=== PATIENT | female | born 1985 | race Two or more races ===

== ENCOUNTER 2019-09-27 20:29 | Emergency (ER) | payer MEDICAID ==
[~2019-09-27] VITALS: Ht 154.9 cm; Wt 68.0 kg
[2019-09-27] MEDS ORDERED: SODIUM CHLORIDE 0.9% 1,000 ML IV ONE (21:17)
[2019-09-27] MEDS ORDERED: ONDANSETRON HCL 4MG/2ML INJ IV STA ×2 (21:17→23:30)
[2019-09-27] MEDS ORDERED: KETOROLAC 30MG/ML VIAL IV STA (21:22)
[2019-09-27 21:27] LABS: CLARITY URINE CLOUDY (CLEAR); COLOR URINE YELLOW (YELLOW); KETONES URINE 2+ (NEGATIVE); LEUKOCYTE ESTERASE URINE NEGATIVE (NEGATIVE); NITRITE URINE NEGATIVE (NEGATIVE); OCCULT BLOOD URINE 3+ (NEGATIVE); PH URINE 5.5 (4.5-8.0); PROTEIN URINE 1+ (NEGATIVE); SPECIFIC GRAVITY URINE 1.019 (1.005-1.030); UROBILINOGEN URINE 0.2 E.U./dL (0.2-1.0)
[2019-09-27 21:38] LABS: BASOPHILS % 0.1 % (0.0-2.0); HEMATOCRIT. 41.3 % (36.0-48.0); HEMOGLOBIN. 14.3 g/dL (12.0-16.0); LYMPHOCYTES % 10.7 % (20.0-50.0); MEAN CORPUSCULAR HEMOGLOBIN 30.8 pg (28.0-32.0); MEAN CORPUSCULAR VOLUME 89.4 fL (81.0-99.0); MEAN PLATELET VOLUME 7.5 fl (7.4-10.4); MONOCYTES % 5.8 % (2.0-8.0); NEUTROPHILS % 83.4 % (40.0-76.0); PLATELET 257 x1000/uL (130-400); RED BLOOD CELL COUNT 4.62 mill/uL (4.2-5.4); RED CELL DISTRIBUTION WIDTH 12.8 % (11.6-14.6)
[2019-09-27 21:41] LABS: CHLORIDE 107 mEq/L (98-107)
[2019-09-27 21:44] LABS: PROTHROMBIN TIME 10.9 sec (9.6-11.0)
[2019-09-27] MEDS ORDERED: MORPHINE SULFATE 2 MG/ML CPJ (NOT FOR IM USE) IV ONE (21:45)
[2019-09-27 21:55] LABS: B-HCG QUANTITATIVE < 1 mIU/mL (<3)
[2019-09-27] MEDS ORDERED: POTASSIUM CHLORIDE 20MEQ TABLET SR PO ONE (22:00)
[2019-09-27] MEDS ORDERED: IOHEXOL-300 100 ML BOTTLE ONE (22:57)
[2019-09-27] MEDS ORDERED: MORPHINE SULFATE 4 MG/ML CPJ (NOT FOR IM USE) IV STA (23:30)
[2019-09-27 23:56] VITALS: BP 122/76
[2019-10-02] MEDS ORDERED: SULF1TAB48 MT (09:12)
[2019-10-02] MEDS ORDERED: AZIT500T8 MT (09:12)
== END 2019-09-28 01:18 | disposition home or self-care (01) ==
LOC: ER 20:29
DX: K52.9 Noninfective gastroenteritis and colitis, unspecified (principal)
CPT/HCPCS: 36415; 74177; 76830; 76856; 80053; 81003; 81025; 83690; 84702; 85025; 85610; 96361; 96374; 96375; 96376; 99285; J2270; J2405; J7030; Q9967

== ENCOUNTER 2019-09-28 06:58 | Inpatient (IN) | payer MEDICAID ==
[~2019-09-28] VITALS: Ht 154.9 cm; Wt 68.0 kg
[2019-09-28] MEDS ORDERED: SODIUM CHLORIDE 0.9% 1,000 ML IV ONE (08:00)
[2019-09-28] MEDS ORDERED: METRONIDAZOLE 500 MG PREMIX 100 ML IV ONE (09:45)
[2019-09-28] MEDS ORDERED: ONDANSETRON HCL 4MG/2ML INJ IV ONE (09:45)
[2019-09-28] MEDS ORDERED: LEVOFLOXACIN 500MG PREMIX 100 ML IV ONE (09:45)
[2019-09-28] MEDS ORDERED: METOCLOPRAMIDE HCL 10MG/2ML VIAL IV ONE (12:30)
[2019-09-28] MEDS ORDERED: ACETAMINOPHEN 325MG TABLET PO PRN (15:00)
[2019-09-28 15:22] LABS: CHLORIDE 109 mEq/L (98-107)
[2019-09-28 15:24] LABS: HEMATOCRIT. 38.9 % (36.0-48.0); HEMOGLOBIN. 13.4 g/dL (12.0-16.0); MEAN CORPUSCULAR HEMOGLOBIN 30.9 pg (28.0-32.0); MEAN CORPUSCULAR VOLUME 89.7 fL (81.0-99.0); MEAN PLATELET VOLUME 7.6 fl (7.4-10.4); PLATELET 247 x1000/uL (130-400); RED BLOOD CELL COUNT 4.34 mill/uL (4.2-5.4); RED CELL DISTRIBUTION WIDTH 12.8 % (11.6-14.6)
[2019-09-28 15:54] VITALS: BP 107/66
[2019-09-28 16:00] VITALS: BP 101/66
[2019-09-28 16:06] LABS: PLATELET ESTIMATE NORMAL
[2019-09-28] MEDS: ONDANSETRON HCL 4MG/2ML INJ IV PRN (16:15)
[2019-09-28] MEDS: DEXT 5%/0.45% NACL 1000ML 1,000 ML IV SCH (16:15)
[2019-09-28] MEDS: MORPHINE SULFATE 2 MG/ML CPJ (NOT FOR IM USE) IV PRN ×2 (16:16→20:40)
[2019-09-28] MEDS ORDERED: POTASSIUM CHLORIDE 20MEQ TABLET SR PO NR (17:30)
[2019-09-28] MEDS: METOCLOPRAMIDE HCL 10MG/2ML VIAL IV SCH ×2 (17:47→23:12)
[2019-09-28] MEDS ORDERED: PIPERACILLIN/TAZOBACTAM 3.375 G in DEXT 5% WATER 100 ML IV SCH (18:00)
[2019-09-28 19:22] LABS: *AMPHETAMINES SCREEN URINE NEGATIVE (NEGATIVE); *BARBITURATES SCREEN URINE NEGATIVE (NEGATIVE); *BENZODIAZEPINES SCREEN URINE NEGATIVE (NEGATIVE); *COCAINE SCREEN URINE NEGATIVE (NEGATIVE); METHADONE URINE SCREEN NEGATIVE (NEGATIVE); PHENCYCLIDINE URINE SCREEN NEGATIVE (NEGATIVE)
[2019-09-28 19:24] LABS: CANNABINOID URINE SCREEN PRESUMTIVE POSITIVE (NEGATIVE); OPIATES URINE SCREEN PRESUMTIVE POSITIVE (NEGATIVE)
[2019-09-28 20:00] VITALS: BP 128/77
[2019-09-28] MEDS: PIPERACILLIN/TAZOBACTAM 3.375 G in DEXT 5% WATER 100 ML IV SCH (20:37)
[2019-09-29] VITALS: BP 122/67
[2019-09-29] MEDS: DEXT 5%/0.45% NACL 1000ML 1,000 ML IV SCH ×3 (01:42→21:51)
[2019-09-29] MEDS: PIPERACILLIN/TAZOBACTAM 3.375 G in DEXT 5% WATER 100 ML IV SCH ×4 (03:00→21:51)
[2019-09-29 04:00] VITALS: BP 95/54
[2019-09-29] MEDS: METOCLOPRAMIDE HCL 10MG/2ML VIAL IV SCH ×3 (05:48→18:46)
[2019-09-29 06:30] LABS: BASOPHILS % 0.4 % (0.0-2.0); HEMATOCRIT. 35.1 % (36.0-48.0); HEMOGLOBIN. 12.1 g/dL (12.0-16.0); LYMPHOCYTES % 18.7 % (20.0-50.0); MEAN CORPUSCULAR HEMOGLOBIN 30.8 pg (28.0-32.0); MEAN CORPUSCULAR VOLUME 89.1 fL (81.0-99.0); MEAN PLATELET VOLUME 7.9 fl (7.4-10.4); NEUTROPHILS % 69.9 % (40.0-76.0); PLATELET 251 x1000/uL (130-400); RED BLOOD CELL COUNT 3.95 mill/uL (4.2-5.4); RED CELL DISTRIBUTION WIDTH 12.9 % (11.6-14.6)
[2019-09-29 06:43] LABS: CHLORIDE 108 mEq/L (98-107)
[2019-09-29] MEDS: MORPHINE SULFATE 2 MG/ML CPJ (NOT FOR IM USE) IV PRN ×4 (06:53→21:03)
[2019-09-29 07:10] LABS: HCG SCREEN NEGATIVE
[2019-09-29 08:00] VITALS: BP 103/61
[2019-09-29] MEDS ORDERED: POTASSIUM CHLORIDE 20MEQ TABLET SR PO SCH (08:20)
[2019-09-29] MEDS: ONDANSETRON HCL 4MG/2ML INJ IV PRN ×2 (10:08→21:05)
[2019-09-29 12:00] VITALS: BP 123/72
[2019-09-29 16:00] VITALS: BP 131/74
[2019-09-29 20:00] VITALS: BP 118/78
[2019-09-29] MEDS: VANCOMYCIN HCL 1000 MG/20 ML ORAL PO SCH (22:35)
[2019-09-30] VITALS: BP 123/69
[2019-09-30] MEDS: METOCLOPRAMIDE HCL 10MG/2ML VIAL IV SCH ×3 (00:51→13:29)
[2019-09-30] MEDS: MORPHINE SULFATE 2 MG/ML CPJ (NOT FOR IM USE) IV PRN ×3 (01:03→10:45)
[2019-09-30] MEDS: PIPERACILLIN/TAZOBACTAM 3.375 G in DEXT 5% WATER 100 ML IV SCH ×3 (03:17→15:00)
[2019-09-30 04:00] VITALS: BP 128/73
[2019-09-30 07:22] LABS: BASOPHILS % 0.4 % (0.0-2.0); EOSINOPHILS % 0.1 % (0.0-5.0); HEMATOCRIT. 37.3 % (36.0-48.0); HEMOGLOBIN. 12.9 g/dL (12.0-16.0); LYMPHOCYTES % 22.5 % (20.0-50.0); MEAN CORPUSCULAR VOLUME 89.3 fL (81.0-99.0); MEAN PLATELET VOLUME 7.9 fl (7.4-10.4); MONOCYTES % 8.2 % (2.0-8.0); NEUTROPHILS % 68.8 % (40.0-76.0); PLATELET 261 x1000/uL (130-400); RED BLOOD CELL COUNT 4.18 mill/uL (4.2-5.4); RED CELL DISTRIBUTION WIDTH 12.9 % (11.6-14.6)
[2019-09-30 07:33] LABS: CHLORIDE 103 mEq/L (98-107)
[2019-09-30] MEDS ORDERED: POTASSIUM CHLORIDE 20MEQ TABLET SR PO NR (07:45)
[2019-09-30 08:00] VITALS: BP 127/68
[2019-09-30] MEDS: VANCOMYCIN HCL 1000 MG/20 ML ORAL PO SCH ×3 (09:26→17:00)
[2019-09-30] MEDS: DEXT 5%/0.45% NACL 1000ML 1,000 ML IV SCH ×2 (09:30→17:00)
[2019-09-30] MEDS ORDERED: POTASSIUM CHLORIDE INJ 40 MEQ in DEXT 5% WATER 500 ML IV NR (10:00)
[2019-09-30 12:00] VITALS: BP 122/72
[2019-09-30] MEDS ORDERED: ONDA4TAB5 MT (13:55)
[2019-09-30 14:17] VITALS: BP 122/72
[2019-09-30 16:00] VITALS: BP 120/78
[2019-10-02] MEDS ORDERED: SULF1TAB48 MT (09:12)
[2019-10-02] MEDS ORDERED: AZIT500T8 MT (09:12)
[2019-10-03 13:07] LABS: SACCHAROMYCES CEREVISIAE IGG <20.0 Units (0.0-24.9); SACCHAROMYCES CEREVISIAE IGM <20.0 Units (0.0-24.9)
[2019-10-03 14:09] LABS: ATYPICAL pANCA <1:20 titer (Neg:<1:20)
== END 2019-09-30 17:06 | disposition home or self-care (01) | DRG 253 ==
LOC: ER 06:58 → 6EST 10:59 → EDBEDREQ 11:12 → ENRESERV 14:37
PROVIDERS: ADMIT Internal Medicine; ATTEND Internal Medicine
DX: K92.2 Gastrointestinal hemorrhage, unspecified (principal); A04.5 Campylobacter enteritis; E87.6 Hypokalemia; F11.10 Opioid abuse, uncomplicated; A02.0 Salmonella enteritis
CPT/HCPCS: 36415; 80048; 80305; 82270; 83735; 84703; 85025; 86256; 86671; 87015; 87045; 87186; 87427; 87449; 87493; 89055; 99285; J1956; J2270; J2405; J2543; J2765; J3370; J3480; J3490; J7060

== ENCOUNTER 2020-01-04 03:05 | Emergency (ER) | payer MEDICAID ==
[~2020-01-04] VITALS: Ht 157.5 cm; Wt 63.0 kg
[~2020-01-04 03:05] MED LIST: AZIT500T8 MT; ONDA4TAB5 MT; SULF1TAB48 MT
[2020-01-04] MEDS ORDERED: DICYCLOMINE 10 MG/5 ML ORAL SYR PO STA (06:54)
[2020-01-04] MEDS ORDERED: VISCOUS LIDOCAINE 2% 15 ML UDC PO STA (06:54)
[2020-01-04] MEDS ORDERED: MAGNESIUM/ALUMINUM HYDROXIDE/SIMETHICONE 30ML UDC PO STA (06:54)
[2020-01-04] MEDS ORDERED: SODIUM CHLORIDE 0.9% 1,000 ML IV ONE (06:54)
[2020-01-04] MEDS ORDERED: ONDANSETRON HCL 4MG/2ML INJ IV STA (06:54)
[2020-01-04 07:00] VITALS: BP 128/62
[2020-01-04 07:39] LABS: CLARITY URINE CLEAR (CLEAR); COLOR URINE YELLOW (YELLOW); KETONES URINE NEGATIVE (NEGATIVE); LEUKOCYTE ESTERASE URINE NEGATIVE (NEGATIVE); NITRITE URINE NEGATIVE (NEGATIVE); OCCULT BLOOD URINE NEGATIVE (NEGATIVE); PROTEIN URINE NEGATIVE (NEGATIVE); SPECIFIC GRAVITY URINE 1.014 (1.005-1.030); UROBILINOGEN URINE 0.2 E.U./dL (0.2-1.0)
[2020-01-04 07:41] LABS: PROTHROMBIN TIME 10.6 sec (9.6-11.0)
[2020-01-04 07:43] LABS: BASOPHILS % 0.6 % (0.0-2.0); CHLORIDE 107 mEq/L (98-107); EOSINOPHILS % 0.4 % (0.0-5.0); HEMATOCRIT. 38.8 % (36.0-48.0); HEMOGLOBIN. 13.3 g/dL (12.0-16.0); LYMPHOCYTES % 29.1 % (20.0-50.0); MEAN CORPUSCULAR HEMOGLOBIN 30.4 pg (28.0-32.0); MEAN PLATELET VOLUME 7.8 fl (7.4-10.4); NEUTROPHILS % 62.9 % (40.0-76.0); PLATELET 270 x1000/uL (130-400); RED BLOOD CELL COUNT 4.36 mill/uL (4.2-5.4); RED CELL DISTRIBUTION WIDTH 12.8 % (11.6-14.6)
== END 2020-01-04 10:01 | disposition home or self-care (01) ==
LOC: ER 03:05
DX: R10.9 Unspecified abdominal pain (principal); R05 Cough
CPT/HCPCS: 36415; 71045; 80053; 81003; 81025; 83690; 85025; 85610; 93005; 96374; 99285; J2405; J7030

== ENCOUNTER 2020-01-24 12:37 | Emergency (ER) | payer MEDICAID ==
[~2020-01-24] VITALS: Ht 165.1 cm; Wt 65.0 kg
[2020-01-24 12:54] VITALS: BP 118/68
[2020-01-24 15:04] LABS: CLARITY URINE CLEAR (CLEAR); COLOR URINE YELLOW (YELLOW); KETONES URINE NEGATIVE (NEGATIVE); LEUKOCYTE ESTERASE URINE NEGATIVE (NEGATIVE); NITRITE URINE NEGATIVE (NEGATIVE); OCCULT BLOOD URINE NEGATIVE (NEGATIVE); PROTEIN URINE NEGATIVE (NEGATIVE); SPECIFIC GRAVITY URINE 1.007 (1.005-1.030); UROBILINOGEN URINE 0.2 E.U./dL (0.2-1.0)
== END 2020-01-24 15:20 | disposition home or self-care (01) ==
LOC: ER 12:37
DX: J06.9 Acute upper respiratory infection, unspecified (principal); F12.90 Cannabis use, unspecified, uncomplicated
CPT/HCPCS: 71045; 81003; 81025; 99284

== ENCOUNTER 2020-02-27 12:29 | Emergency (ER) | payer MEDICAID, OTHER ==
[~2020-02-27] VITALS: Ht 154.9 cm; Wt 68.0 kg
[2020-02-27 14:24] LABS: CLARITY URINE CLEAR (CLEAR); COLOR URINE YELLOW (YELLOW); KETONES URINE TRACE (NEGATIVE); LEUKOCYTE ESTERASE URINE NEGATIVE (NEGATIVE); NITRITE URINE NEGATIVE (NEGATIVE); OCCULT BLOOD URINE NEGATIVE (NEGATIVE); PH URINE 5.5 (4.5-8.0); PROTEIN URINE NEGATIVE (NEGATIVE); SPECIFIC GRAVITY URINE 1.008 (1.005-1.030); UROBILINOGEN URINE 0.2 E.U./dL (0.2-1.0)
[2020-02-27 14:25] LABS: BASOPHILS % 0.8 % (0.0-2.0); HEMATOCRIT. 39.5 % (36.0-48.0); HEMOGLOBIN. 13.6 g/dL (12.0-16.0); LYMPHOCYTES % 15.4 % (20.0-50.0); MEAN CORPUSCULAR HEMOGLOBIN 30.1 pg (28.0-32.0); MEAN CORPUSCULAR VOLUME 87.4 fL (81.0-99.0); MEAN PLATELET VOLUME 7.8 fl (7.4-10.4); MONOCYTES % 4.6 % (2.0-8.0); NEUTROPHILS % 79.2 % (40.0-76.0); PLATELET 293 x1000/uL (130-400); RED BLOOD CELL COUNT 4.52 mill/uL (4.2-5.4); RED CELL DISTRIBUTION WIDTH 12.5 % (11.6-14.6)
[2020-02-27 14:30] LABS: CHLORIDE 108 mEq/L (98-107)
[2020-02-27 14:43] LABS: B-HCG QUANTITATIVE 374 mIU/mL (<3)
[2020-02-27 15:18] VITALS: BP 121/72
== END 2020-02-27 15:33 | disposition home or self-care (01) ==
LOC: ER 12:29
DX: O34.81 Maternal care for other abnormalities of pelvic organs, first trimester (principal); N83.201 Unspecified ovarian cyst, right side; Z3A.01 Less than 8 weeks gestation of pregnancy
CPT/HCPCS: 36415; 76801; 80053; 81003; 81025; 84702; 85025; 86850; 86900; 93005; 99285

== ENCOUNTER 2020-02-29 08:56 | Emergency (ER) | payer OTHER ==
[~2020-02-29] VITALS: Ht 154.9 cm; Wt 60.0 kg
[2020-02-29 09:42] LABS: BASOPHILS % 0.5 % (0.0-2.0); EOSINOPHILS % 0.1 % (0.0-5.0); HEMATOCRIT. 37.1 % (36.0-48.0); HEMOGLOBIN. 12.9 g/dL (12.0-16.0); LYMPHOCYTES % 20.5 % (20.0-50.0); MEAN CORPUSCULAR HEMOGLOBIN 30.6 pg (28.0-32.0); MEAN CORPUSCULAR VOLUME 87.9 fL (81.0-99.0); MEAN PLATELET VOLUME 7.4 fl (7.4-10.4); MONOCYTES % 6.5 % (2.0-8.0); NEUTROPHILS % 72.4 % (40.0-76.0); PLATELET 255 x1000/uL (130-400); RED BLOOD CELL COUNT 4.22 mill/uL (4.2-5.4); RED CELL DISTRIBUTION WIDTH 12.5 % (11.6-14.6)
[2020-02-29 09:48] LABS: CHLORIDE 107 mEq/L (98-107)
[2020-02-29 10:01] LABS: B-HCG QUANTITATIVE 822 mIU/mL (<3)
[2020-02-29 11:20] VITALS: BP 108/65
== END 2020-02-29 11:26 | disposition home or self-care (01) ==
LOC: ER 09:10
DX: O26.891 Other specified pregnancy related conditions, first trimester (principal); O20.0 Threatened abortion; J40 Bronchitis, not specified as acute or chronic; Z3A.01 Less than 8 weeks gestation of pregnancy
CPT/HCPCS: 36415; 76801; 80053; 84702; 85025; 86850; 86900; 93005; 99285

== ENCOUNTER 2020-03-07 13:53 | Emergency (ER) | payer MEDICAID ==
[~2020-03-07] VITALS: Ht 154.9 cm; Wt 64.0 kg
[2020-03-07 14:42] LABS: CLARITY URINE CLEAR (CLEAR); COLOR URINE YELLOW (YELLOW); KETONES URINE NEGATIVE (NEGATIVE); LEUKOCYTE ESTERASE URINE NEGATIVE (NEGATIVE); NITRITE URINE NEGATIVE (NEGATIVE); OCCULT BLOOD URINE NEGATIVE (NEGATIVE); PH URINE 6.5 (4.5-8.0); PROTEIN URINE NEGATIVE (NEGATIVE); SPECIFIC GRAVITY URINE 1.011 (1.005-1.030); UROBILINOGEN URINE 0.2 E.U./dL (0.2-1.0)
[2020-03-07 15:08] LABS: BASOPHILS % 0.5 % (0.0-2.0); EOSINOPHILS % 0.2 % (0.0-5.0); HEMATOCRIT. 35.3 % (36.0-48.0); HEMOGLOBIN. 12.3 g/dL (12.0-16.0); LYMPHOCYTES % 21.3 % (20.0-50.0); MEAN CORPUSCULAR HEMOGLOBIN 30.5 pg (28.0-32.0); MEAN CORPUSCULAR VOLUME 87.3 fL (81.0-99.0); MEAN PLATELET VOLUME 7.6 fl (7.4-10.4); MONOCYTES % 5.1 % (2.0-8.0); NEUTROPHILS % 72.9 % (40.0-76.0); PLATELET 238 x1000/uL (130-400); RED BLOOD CELL COUNT 4.05 mill/uL (4.2-5.4)
[2020-03-07 15:16] LABS: CHLORIDE 106 mEq/L (98-107)
[2020-03-07 15:46] LABS: B-HCG QUANTITATIVE 8594 mIU/mL (<3)
[2020-03-07 17:15] VITALS: BP 114/73
== END 2020-03-07 17:19 | disposition home or self-care (01) ==
LOC: ER 13:53
DX: O20.0 Threatened abortion (principal); O26.891 Other specified pregnancy related conditions, first trimester; J40 Bronchitis, not specified as acute or chronic; Z3A.01 Less than 8 weeks gestation of pregnancy
CPT/HCPCS: 36415; 76801; 80053; 81003; 84702; 85025; 93005; 99285

== ENCOUNTER 2020-04-18 09:13 | Emergency (ER) | payer MEDICAID ==
[~2020-04-18] VITALS: Ht 157.5 cm; Wt 64.0 kg
[2020-04-18] MEDS ORDERED: ACETAMINOPHEN 500MG TABLET PO ONE (10:15)
[2020-04-18 10:25] VITALS: BP 109/61
== END 2020-04-18 10:26 | disposition home or self-care (01) ==
LOC: ER 09:21
DX: O26.891 Other specified pregnancy related conditions, first trimester (principal); R51.9 Headache, unspecified; H92.03 Otalgia, bilateral; Z3A.12 12 weeks gestation of pregnancy
CPT/HCPCS: 99282

== ENCOUNTER 2020-06-05 09:34 | Emergency (ER) | payer MEDICAID ==
[~2020-06-05] VITALS: Ht 154.9 cm; Wt 66.0 kg
[2020-06-05 09:35] VITALS: BP 105/71
[2020-06-05 10:21] LABS: CLARITY URINE CLEAR (CLEAR); COLOR URINE YELLOW (YELLOW); KETONES URINE NEGATIVE (NEGATIVE); LEUKOCYTE ESTERASE URINE TRACE (NEGATIVE); NITRITE URINE NEGATIVE (NEGATIVE); OCCULT BLOOD URINE NEGATIVE (NEGATIVE); PROTEIN URINE NEGATIVE (NEGATIVE); SPECIFIC GRAVITY URINE 1.015 (1.005-1.030); UROBILINOGEN URINE 0.2 E.U./dL (0.2-1.0)
[2020-06-05 10:21] LABS: BASOPHILS % 0.6 % (0.0-2.0); EOSINOPHILS % 0.1 % (0.0-5.0); HEMATOCRIT. 35.9 % (36.0-48.0); HEMOGLOBIN. 12.4 g/dL (12.0-16.0); LYMPHOCYTES % 14.8 % (20.0-50.0); MEAN CORPUSCULAR HEMOGLOBIN 30.7 pg (28.0-32.0); MEAN CORPUSCULAR VOLUME 88.9 fL (81.0-99.0); MEAN PLATELET VOLUME 7.3 fl (7.4-10.4); MONOCYTES % 4.7 % (2.0-8.0); NEUTROPHILS % 79.8 % (40.0-76.0); PLATELET 256 x1000/uL (130-400); RED BLOOD CELL COUNT 4.04 mill/uL (4.2-5.4); RED CELL DISTRIBUTION WIDTH 13.7 % (11.6-14.6)
[2020-06-05 10:27] LABS: CHLORIDE 108 mEq/L (98-107)
[2020-06-05 10:51] LABS: B-HCG QUANTITATIVE 24392 mIU/mL (<3)
== END 2020-06-05 11:56 | disposition home or self-care (01) ==
LOC: ER 10:18
DX: O46.92 Antepartum hemorrhage, unspecified, second trimester (principal); O26.892 Other specified pregnancy related conditions, second trimester; I49.9 Cardiac arrhythmia, unspecified; Z3A.18 18 weeks gestation of pregnancy
CPT/HCPCS: 36415; 76805; 80053; 81003; 84702; 85025; 86850; 86900; 93005; 99285

== ENCOUNTER 2021-05-14 08:52 | Emergency (ER) | payer MEDICAID ==
[~2021-05-14] VITALS: Ht 154.9 cm; Wt 62.0 kg
[2021-05-14 10:22] LABS: CLARITY URINE CLOUDY (CLEAR); COLOR URINE YELLOW (YELLOW); KETONES URINE 1+ (NEGATIVE); LEUKOCYTE ESTERASE URINE NEGATIVE (NEGATIVE); NITRITE URINE NEGATIVE (NEGATIVE); OCCULT BLOOD URINE 1+ (NEGATIVE); PROTEIN URINE 1+ (NEGATIVE); SPECIFIC GRAVITY URINE 1.032 (1.005-1.030); UCG SCREEN NEGATIVE; UROBILINOGEN URINE 0.2 E.U./dL (0.2-1.0)
[2021-05-14] MEDS ORDERED: ONDANSETRON HCL 4MG/2ML INJ IV STA (12:16)
[2021-05-14] MEDS ORDERED: MAGNESIUM/ALUMINUM HYDROXIDE/SIMETHICONE 30ML UDC PO STA (12:16)
[2021-05-14] MEDS ORDERED: METOCLOPRAMIDE HCL 10MG/2ML VIAL IV STA (12:16)
[2021-05-14] MEDS ORDERED: FAMOTIDINE 20MG/2ML VIAL IV STA (12:16)
[2021-05-14] MEDS ORDERED: MORPHINE SULFATE 4 MG/ML CPJ (NOT FOR IM USE) IV STA (12:16)
[2021-05-14] MEDS ORDERED: HALOPERIDOL LACTATE 5MG/ML VIAL IM ONE (12:30)
[2021-05-14] MEDS ORDERED: DIPHENHYDRAMINE 50MG/ML VIAL IV ONE (12:30)
[2021-05-14] MEDS ORDERED: SODIUM CHLORIDE 0.9% 1,000 ML IV ONE (12:30)
[2021-05-14 12:49] LABS: HEMATOCRIT. 42.2 % (36.0-48.0); HEMOGLOBIN. 14.8 g/dL (12.0-16.0); MEAN PLATELET VOLUME 7.3 fl (7.4-10.4); PLATELET 269 x1000/uL (130-400); RED BLOOD CELL COUNT 4.79 mill/uL (4.2-5.4)
[2021-05-14 12:56] LABS: CHLORIDE 105 mEq/L (98-107)
[2021-05-14 13:00] LABS: HCG SCREEN NEGATIVE
[2021-05-14 13:06] LABS: PLATELET ESTIMATE NORMAL
[2021-05-14 16:36] VITALS: BP 135/61
== END 2021-05-14 16:38 | disposition home or self-care (01) ==
LOC: ER 08:52
DX: R11.2 Nausea with vomiting, unspecified (principal); F12.10 Cannabis abuse, uncomplicated; R10.13 Epigastric pain; R19.7 Diarrhea, unspecified; F17.200 Nicotine dependence, unspecified, uncomplicated; Z79.899 Other long term (current) drug therapy; Z20.822 Contact with and (suspected) exposure to COVID-19
CPT/HCPCS: 36415; 71045; 76700; 80053; 80076; 81003; 81025; 83690; 83735; 83880; 84484; 84703; 85025; 87426; 96361; 96372; 96374; 96375; 99285; J1200; J1630; J2270; J2405; J2765; J3490; J7030